=== PATIENT | female | born 1990 | race Caucasian/White ===

== ENCOUNTER → 2019-03-03 | Outpatient (REF) | payer OTHER ==
[~2019-03-03] MED LIST: ANUS2.5C2 TOP; DOCU10CA PO; MAPA500T2 PO; MOM30SS PO; MOTR200T44 PO; NOMEDS
== END ==
LOC: M LAB REF 13:29
PROVIDERS: ATTEND Advanced Practice Midwife
DX: Z12.4 Encounter for screening for malignant neoplasm of cervix (principal)

== ENCOUNTER → 2020-11-17 | Outpatient (REF) | payer OTHER | LOC: M SFHCADAM 16:02 | PROVIDERS: ATTEND Family Medicine | DX: Z00.00 Encounter for general adult medical examination without abnormal findings (principal); Z84.1 Family history of disorders of kidney and ureter; Z13.220 Encounter for screening for lipoid disorders; Z13.29 Encounter for screening for other suspected endocrine disorder ==